=== PATIENT | male | born 1960 | race Caucasian/White ===

== ENCOUNTER 2021-12-13 21:11 | Inpatient (IN) | payer MEDICARE, OTHER ==
[2021-12-13 22:03] LABS: #Basophils 0.1 10x3/uL (0.0-0.2); #Eosinphils 1.5 10x3/uL (0.0-0.5); #Monocytes 0.9 10x3/uL (0.0-1.1); #Neutrophils 6.7 10x3/uL (1.5-8.4); %Basophils 0.8 % (0.0-2.0); %Eosinophils 12.9 % (0.0-6.0); %Lymphocytes 19.9 % (18.0-47.0); %Monocytes 7.8 % (0.0-10.0); %Neutrophils 58.3 % (40.0-75.0); Hemoglobin 15.7 g/dL (13.5-17.5); Mean Corpuscular Hemoglobin 29.7 pg (27.0-33.0); Mean Corpuscular Volume 87.5 fl (81.2-95.1); Mean Platelet Volume 9.2 fl (7.4-10.4); Platelet Count 304 10x3/uL (150-450); RBC Distribution Width 12.3 % (11.5-14.5); Red Blood Cell (RBC) Count 5.28 10x6/uL (4.32-5.72); White Blood Cell (WBC) Count 11.4 10x3/uL (3.5-10.5)
[2021-12-13 22:14] LABS: ALT (SGPT) 17 U/L (8-55); AST (SGOT) 17 U/L (5-34); Albumin 4.2 g/dL (3.5-5.0); Alkaline Phosphatase 88 U/L (40-110); Anion Gap 19 mmol/L (10-20); BUN (Urea Nitrogen) 21 mg/dL (8.4-25.7); Calc. Creatinine Clearance 0 mL/min (70-130); Calcium 9.4 mg/dL (7.8-10.44); Carbon Dioxide 23 mmol/L (22-29); Chloride 97 mmol/L (98-107); Estimated GFR 57; Globulin 3.1 g/dL (2.4-3.5); Glucose 396 mg/dL (70-105); Potassium 4.8 mmol/L (3.5-5.1); Protein, Total 7.3 g/dL (6.0-8.3); Sodium 134 mmol/L (136-145)
[2021-12-13 22:31] LABS: SARS-CoV-2 NAA Rapid Test Not Detected (NotDetected)
[2021-12-13] MEDS ORDERED: predniSONE 20 MG TAB ONE (23:09)
[2021-12-13] MEDS ORDERED: Magnesium 2 GM/50 ML BAG (IN WATER) ONE (23:09)
[2021-12-13] MEDS ORDERED: Azithromycin 500 MG VIAL ONE (23:09)
[2021-12-13] MEDS ORDERED: cefTRIAXone\\ROCEPHIN 1 GM VIAL ONE (23:29)
[2021-12-14 00:27] LABS: Lactic Acid 1.3 mmol/L (0.5-2.2)
[2021-12-14] MEDS ORDERED: Acetaminophen 325 MG TAB PO PRN (01:22)
[2021-12-14] MEDS ORDERED: Dextrose 50% Abboject 50 ML SYRINGE SLOW IVP PRN (01:27)
[2021-12-14] MEDS ORDERED: Dextrose 5% in Water 1,000 ML IV PRN (01:27)
[2021-12-14 02:45] VITALS: BMI 26.7
[2021-12-14] MEDS: Guaifenesin DM 100-10/5 ML UDCUP PO PRN ×2 (02:54→10:17)
[2021-12-14] MEDS ORDERED: methylPREDNISolone Sod Succ 40 MG VIAL IVP SCH (03:00)
[2021-12-14] MEDS: Sodium Chloride 0.9% 1,000 ML IV SCH ×2 (03:03→07:00)
[2021-12-14 04:00] LABS: #Basophils 0.1 10x3/uL (0.0-0.2); #Eosinphils 0.4 10x3/uL (0.0-0.5); #Monocytes 0.2 10x3/uL (0.0-1.1); #Neutrophils 7.3 10x3/uL (1.5-8.4); %Basophils 0.7 % (0.0-2.0); %Lymphocytes 8.8 % (18.0-47.0); %Monocytes 2.2 % (0.0-10.0); Hemoglobin 14.8 g/dL (13.5-17.5); Mean Corpuscular HGB CONC 33.2 g/dL (32.0-36.0); Mean Corpuscular Hemoglobin 29.4 pg (27.0-33.0); Mean Corpuscular Volume 88.5 fl (81.2-95.1); Mean Platelet Volume 9.1 fl (7.4-10.4); Platelet Count 275 10x3/uL (150-450); RBC Distribution Width 12.4 % (11.5-14.5); Red Blood Cell (RBC) Count 5.04 10x6/uL (4.32-5.72); White Blood Cell (WBC) Count 8.8 10x3/uL (3.5-10.5)
[2021-12-14 04:16] LABS: Anion Gap 18 mmol/L (10-20); BUN (Urea Nitrogen) 17 mg/dL (8.4-25.7); Calc. Creatinine Clearance 90 mL/min (70-130); Calcium 8.6 mg/dL (7.8-10.44); Carbon Dioxide 17 mmol/L (22-29); Chloride 102 mmol/L (98-107); Estimated GFR 76; Glucose 398 mg/dL (70-105); Magnesium 2.1 mg/dL (1.6-2.6); Potassium 5.1 mmol/L (3.5-5.1); Sodium 132 mmol/L (136-145)
[2021-12-14] MEDS: HumaLOG 300 UNITS/3 ML VIAL SC PRN ×3 (04:40→11:38)
[2021-12-14 05:19] VITALS: BP 145/82; TEMP 98.3
[2021-12-14] MEDS ORDERED: Insulin Regular 300 UNITS/3 ML VIAL IVP SCH (05:45)
[2021-12-14] MEDS ORDERED: Levothyroxine Sodium 50 MCG TAB PO SCH (06:00)
[2021-12-14] MEDS ORDERED: Budesonide 0.5 MG/2 ML NEB NEB SCH (06:30)
[2021-12-14] MEDS ORDERED: Arformoterol 15 MCG/2 ML NEB NEB SCH (06:30)
[2021-12-14] MEDS ORDERED: metFORMIN 500 MG TAB PO SCH (08:00)
[2021-12-14] MEDS ORDERED: Enoxaparin Sodium 40 MG/0.4 ML SYRINGE SC SCH (09:00)
[2021-12-14] MEDS ORDERED: Lisinopril 10 MG TAB PO SCH (09:00)
[2021-12-14] MEDS ORDERED: Empagliflozin 25 MG TAB PO SCH (09:00)
[2021-12-14] MEDS ORDERED: Clopidogrel Bisulfate 75 MG TAB PO SCH (09:00)
[2021-12-14] MEDS ORDERED: Lantus 1000 UNITS/10 ML VIAL SC SCH (09:00)
[2021-12-14] MEDS ORDERED: Aspirin 81 mg Enteric Coated Tablet PO SCH (09:00)
[2021-12-14] MEDS ORDERED: Nicotine 21 MG PATCH TD SCH (09:00)
[2021-12-14] MEDS ORDERED: Atorvastatin Calcium 10 MG TAB PO SCH (21:00)
[2021-12-14] MEDS ORDERED: cefTRIAXone\\ROCEPHIN 1 GM in Sodium Chloride 0.9% 100 ML IVPB SCH (23:00)
[2021-12-14] MEDS ORDERED: Azithromycin 500 MG in Sodium Chloride 0.9% 250 ML 250 ML IVPB SCH (23:59)
== END 2021-12-14 14:03 | disposition home health service (06) | DRG 190 ==
LOC: CSHERS 21:11 → CSHTELE 12-14 02:00 → CSHICU 12-14 07:31
PROVIDERS: ADMIT Family Medicine; ATTEND Family Medicine
DX: J44.1 Chronic obstructive pulmonary disease with (acute) exacerbation (principal); E11.10 Type 2 diabetes mellitus with ketoacidosis without coma; Z20.822 Contact with and (suspected) exposure to COVID-19; F17.210 Nicotine dependence, cigarettes, uncomplicated; I10 Essential (primary) hypertension; E11.42 Type 2 diabetes mellitus with diabetic polyneuropathy; E11.51 Type 2 diabetes mellitus with diabetic peripheral angiopathy without gangrene; E11.621 Type 2 diabetes mellitus with foot ulcer; L97.509 Non-pressure chronic ulcer of other part of unspecified foot with unspecified severity; Z88.6 Allergy status to analgesic agent; Z88.0 Allergy status to penicillin; Z88.1 Allergy status to other antibiotic agents; Z88.8 Allergy status to other drugs, medicaments and biological substances; Z79.899 Other long term (current) drug therapy; Z79.4 Long term (current) use of insulin; Z79.82 Long term (current) use of aspirin; Z79.890 Hormone replacement therapy; Z79.84 Long term (current) use of oral hypoglycemic drugs; Z79.02 Long term (current) use of antithrombotics/antiplatelets; Z90.49 Acquired absence of other specified parts of digestive tract; Z98.1 Arthrodesis status; Z82.49 Family history of ischemic heart disease and other diseases of the circulatory system; Z83.3 Family history of diabetes mellitus; Z71.6 Tobacco abuse counseling
CPT/HCPCS: 36415; 36416; 71045; 80048; 80053; 82010; 83605; 83735; 83880; 84443; 84484; 85025; 87040; 93005; 93010; 94640; 94760; 96365; 96367; 96368; J0456; J0696; J1650; J1815; J2920; J3475; J7050; J7512; J7620; J7626

== ENCOUNTER 2022-01-21 13:02 | Inpatient (IN) | payer MEDICARE ==
[2022-01-21 13:41] LABS: #Basophils 0.1 10x3/uL (0.0-0.2); #Monocytes 0.5 10x3/uL (0.0-1.1); %Basophils 1.1 % (0.0-2.0); %Eosinophils 12.2 % (0.0-6.0); %Lymphocytes 20.1 % (18.0-47.0); %Monocytes 6.1 % (0.0-10.0); %Neutrophils 60.1 % (40.0-75.0); Hemoglobin 14.7 g/dL (13.5-17.5); Mean Corpuscular HGB CONC 35.1 g/dL (32.0-36.0); Mean Corpuscular Hemoglobin 30.3 pg (27.0-33.0); Mean Corpuscular Volume 86.4 fl (81.2-95.1); Platelet Count 267 10x3/uL (150-450); RBC Distribution Width 12.3 % (11.5-14.5); Red Blood Cell (RBC) Count 4.85 10x6/uL (4.32-5.72); White Blood Cell (WBC) Count 8.3 10x3/uL (3.5-10.5)
[2022-01-21 13:54] LABS: ALT (SGPT) 11 U/L (8-55); AST (SGOT) 11 U/L (5-34); Alkaline Phosphatase 79 U/L (40-110); Anion Gap 15 mmol/L (10-20); BUN (Urea Nitrogen) 13 mg/dL (8.4-25.7); Bilirubin, Total 1.8 mg/dL (0.2-1.2); Calc. Creatinine Clearance 0 mL/min (70-130); Calcium 8.8 mg/dL (7.8-10.44); Carbon Dioxide 23 mmol/L (22-29); Chloride 99 mmol/L (98-107); Estimated GFR 71; Globulin 2.8 g/dL (2.4-3.5); Glucose 315 mg/dL (70-105); Potassium 4.2 mmol/L (3.5-5.1); Protein, Total 6.8 g/dL (6.0-8.3); Sodium 133 mmol/L (136-145)
[2022-01-21] MEDS ORDERED: Cefepime 2 GM VIAL ONE (14:11)
[2022-01-21] MEDS ORDERED: Vancomycin HCl 500 MG VIAL ONE (14:29)
[2022-01-21 15:38] LABS: SARS-CoV-2 NAA Rapid Test Not Detected (NotDetected)
[2022-01-21] MEDS ORDERED: HumaLOG 300 UNITS/3 ML VIAL SC PRN (16:53)
[2022-01-21] MEDS ORDERED: Dextrose 50% Abboject 50 ML SYRINGE SLOW IVP PRN (16:53)
[2022-01-21] MEDS ORDERED: Dextrose 5% in Water 1,000 ML IV PRN (16:53)
[2022-01-21] MEDS ORDERED: Albuterol Sulfate 2.5 mg/3 ml Neb NEB PRN (16:57)
[2022-01-21] MEDS ORDERED: Senokot S 8.6-50 MG TAB PO PRN (17:00)
[2022-01-21] MEDS ORDERED: Acetaminophen 325 MG TAB PO PRN (17:00)
[2022-01-21] MEDS ORDERED: MIST INHAL IH SCH (17:00)
[2022-01-21] MEDS ORDERED: TIOTROPIUM BROMIDE 4 GM IH SCH (17:00)
[2022-01-21 19:38] VITALS: BMI 26.5
[2022-01-21] MEDS ORDERED: Atorvastatin Calcium 10 MG TAB PO SCH (21:00)
[2022-01-21] MEDS ORDERED: Mometasone/Formoterol 60 PUFF AER INH SCH (21:00)
[2022-01-21] MEDS: Sodium Chloride 0.9% 1,000 ML IV SCH (21:16)
[2022-01-21] MEDS: Benzonatate 100 MG CAP PO PRN (23:24)
[2022-01-21 23:49] LABS: Bilirubin Neg (Negative); Blood, Urine Negative (Negative); Clarity Clear (Clear); Glucose, Urine (Dipstick) >=1000 mg/dL (Negative); Ketone, Urine Negative (Negative); Leukocyte Negative (Negative); Nitrite Negative (Negative); Protein, Urine (Dipstick) Negative (Neg-Trace); Urobilinogen Normal mg/dL (Less than 2)
[2022-01-21 23:56] LABS: Bacteria/HPF None Seen HPF (None Seen); RBC/HPF 0-3 HPF (0-3); Squamous Epithelial 0-3 HPF (0-3); WBC/HPF 0-3 HPF (0-3)
[2022-01-22] MEDS: Vancomycin HCl 1 GM in Sodium Chloride 0.9% 250 ML 250 ML IVPB SCH ×2 (02:16→14:12)
[2022-01-22 04:42] LABS: #Basophils 0.1 10x3/uL (0.0-0.2); #Eosinphils 0.8 10x3/uL (0.0-0.5); #Monocytes 0.6 10x3/uL (0.0-1.1); #Neutrophils 4.9 10x3/uL (1.5-8.4); %Basophils 0.9 % (0.0-2.0); %Eosinophils 10.8 % (0.0-6.0); %Lymphocytes 17.3 % (18.0-47.0); %Monocytes 7.2 % (0.0-10.0); %Neutrophils 63.3 % (40.0-75.0); Hemoglobin 13.2 g/dL (13.5-17.5); Mean Corpuscular HGB CONC 34.9 g/dL (32.0-36.0); Mean Corpuscular Hemoglobin 29.7 pg (27.0-33.0); Mean Corpuscular Volume 85.1 fl (81.2-95.1); Mean Platelet Volume 8.9 fl (7.4-10.4); Platelet Count 214 10x3/uL (150-450); RBC Distribution Width 12.5 % (11.5-14.5); Red Blood Cell (RBC) Count 4.44 10x6/uL (4.32-5.72); White Blood Cell (WBC) Count 7.8 10x3/uL (3.5-10.5)
[2022-01-22 05:04] LABS: Anion Gap 14 mmol/L (10-20); BUN (Urea Nitrogen) 11 mg/dL (8.4-25.7); Calc. Creatinine Clearance 113 mL/min (70-130); Calcium 8.4 mg/dL (7.8-10.44); Carbon Dioxide 19 mmol/L (22-29); Chloride 108 mmol/L (98-107); Estimated GFR 99; Glucose 206 mg/dL (70-105); Potassium 3.6 mmol/L (3.5-5.1); Sodium 137 mmol/L (136-145)
[2022-01-22] MEDS: Benzonatate 100 MG CAP PO PRN ×3 (06:02→23:21)
[2022-01-22] MEDS: Levothyroxine Sodium 50 MCG TAB PO SCH (06:02)
[2022-01-22] MEDS: HumaLOG 300 UNITS/3 ML VIAL SC PRN (06:03)
[2022-01-22] MEDS: Sodium Chloride 0.9% 1,000 ML IV SCH (07:22)
[2022-01-22] MEDS: Mometasone/Formoterol 60 PUFF AER INH SCH ×2 (08:34→19:35)
[2022-01-22] MEDS ORDERED: Iopamidol 300 61% 100 ML VIAL FS ONE (08:55)
[2022-01-22] MEDS ORDERED: Communication Order-Pharmacy FS SCH (09:30)
[2022-01-22] MEDS ORDERED: Heparin 10,000 UNITS/ 10 ML VIAL ONE (09:34)
[2022-01-22] MEDS ORDERED: Nitroglycerin 50 MG/250 ML BOT 0 ML ONE (09:34)
[2022-01-22] MEDS ORDERED: Verapamil 5 MG/2 ML VIAL ONE (09:36)
[2022-01-22] MEDS ORDERED: Bivalirudin 250 MG VIAL ONE (09:37)
[2022-01-22] MEDS ORDERED: Lidocaine 1% 20 ML MDV ONE (09:37)
[2022-01-22] MEDS ORDERED: Adenosine 6 MG/2 ML VIAL ONE (09:37)
[2022-01-22] MEDS ORDERED: Fentanyl 100 MCG/2 ML VIAL ONE (09:38)
[2022-01-22] MEDS ORDERED: Midazolam HCl 2 mg/2 ml Vial ONE (09:39)
[2022-01-22] MEDS ORDERED: TICAGRELOR 90 MG TABLET ONE (10:57)
[2022-01-22] MEDS ORDERED: Sodium Chloride 0.9% 1,000 ML IV SCH (12:15)
[2022-01-22] MEDS ORDERED: Labetalol HCl 100 MG/20 ML VIAL ONE (12:25)
[2022-01-22] MEDS: predniSONE 20 MG TAB PO SCH (14:16)
[2022-01-22] MEDS: Venlafaxine 75 MG TAB PO SCH (14:17)
[2022-01-22] MEDS: Cilostazol 100 MG TAB PO SCH ×2 (14:17→17:03)
[2022-01-22] MEDS: Aspirin 81 mg Enteric Coated Tablet PO SCH (14:17)
[2022-01-22] MEDS: Lisinopril 10 MG TAB PO SCH (14:18)
[2022-01-22] MEDS: Lantus 1000 UNITS/10 ML VIAL SC SCH (14:18)
[2022-01-22] MEDS: Clopidogrel Bisulfate 75 MG TAB PO SCH (14:18)
[2022-01-22] MEDS: Empagliflozin 25 MG TAB PO SCH (14:18)
[2022-01-22] MEDS: Cefepime 2 GM in Sodium Chloride 0.9% 100 ML IVPB SCH ×2 (14:19→22:54)
[2022-01-22] MEDS: Atorvastatin Calcium 40 MG TAB PO SCH (20:20)
[2022-01-22] MEDS: Ondansetron ODT 4 MG TAB PO PRN (23:21)
[2022-01-23 01:34] LABS: Vancomycin, Trough 11.3 ug/mL
[2022-01-23] MEDS: Vancomycin HCl 1 GM in Sodium Chloride 0.9% 250 ML 250 ML IVPB SCH ×2 (02:11→14:16)
[2022-01-23] MEDS: Ondansetron ODT 4 MG TAB PO PRN ×2 (04:21→10:55)
[2022-01-23 04:28] LABS: #Monocytes 0.2 10x3/uL (0.0-1.1); #Neutrophils 7.1 10x3/uL (1.5-8.4); %Basophils 0.4 % (0.0-2.0); %Lymphocytes 8.2 % (18.0-47.0); %Neutrophils 87.8 % (40.0-75.0); Mean Corpuscular HGB CONC 34.6 g/dL (32.0-36.0); Mean Corpuscular Hemoglobin 29.8 pg (27.0-33.0); Mean Corpuscular Volume 86.2 fl (81.2-95.1); Mean Platelet Volume 8.8 fl (7.4-10.4); Platelet Count 270 10x3/uL (150-450); RBC Distribution Width 12.5 % (11.5-14.5); White Blood Cell (WBC) Count 8.1 10x3/uL (3.5-10.5)
[2022-01-23 05:01] LABS: ALT (SGPT) 13 U/L (8-55); AST (SGOT) 13 U/L (5-34); Albumin 3.6 g/dL (3.5-5.0); Alkaline Phosphatase 71 U/L (40-110); Anion Gap 18 mmol/L (10-20); BUN (Urea Nitrogen) 17 mg/dL (8.4-25.7); Bilirubin, Total 1.4 mg/dL (0.2-1.2); Calc. Creatinine Clearance 109 mL/min (70-130); Calcium 8.6 mg/dL (7.8-10.44); Carbon Dioxide 14 mmol/L (22-29); Chloride 107 mmol/L (98-107); Estimated GFR 98; Globulin 3.1 g/dL (2.4-3.5); Glucose 328 mg/dL (70-105); Potassium 4.3 mmol/L (3.5-5.1); Protein, Total 6.7 g/dL (6.0-8.3); Sodium 135 mmol/L (136-145)
[2022-01-23 05:17] LABS: Cardiac Risk 3.2 (Less than 4.5); Cholesterol 164 mg/dl (< 200 Desired); HDL Cholesterol 51 mg/dL (>60 Neg Risk); LDL Cholesterol, Calculated 105 mg/dL; Triglycerides 39 mg/dL (Less than 150)
[2022-01-23] MEDS: Levothyroxine Sodium 50 MCG TAB PO SCH (06:32)
[2022-01-23] MEDS: Cilostazol 100 MG TAB PO SCH ×2 (06:32→16:22)
[2022-01-23] MEDS: Mometasone/Formoterol 60 PUFF AER INH SCH ×2 (06:50→18:50)
[2022-01-23] MEDS ORDERED: Carvedilol 6.25 MG TAB PO SCH (09:00)
[2022-01-23] MEDS ORDERED: Magnevist 469MG/ML 20 ML VIAL ONE (09:02)
[2022-01-23] MEDS: Cefepime 2 GM in Sodium Chloride 0.9% 100 ML IVPB SCH ×2 (09:11→21:34)
[2022-01-23] MEDS: Lantus 1000 UNITS/10 ML VIAL SC SCH ×2 (09:12→21:34)
[2022-01-23] MEDS: Empagliflozin 25 MG TAB PO SCH (09:13)
[2022-01-23] MEDS: predniSONE 20 MG TAB PO SCH (09:13)
[2022-01-23] MEDS: Clopidogrel Bisulfate 75 MG TAB PO SCH (09:13)
[2022-01-23] MEDS: Lisinopril 10 MG TAB PO SCH (09:14)
[2022-01-23] MEDS: Venlafaxine 75 MG TAB PO SCH (09:14)
[2022-01-23] MEDS: Aspirin 81 mg Enteric Coated Tablet PO SCH (09:16)
[2022-01-23 12:48] LABS: Hemoglobin A1c 11.2 % (4.0-6.0)
[2022-01-23] MEDS: HumaLOG 300 UNITS/3 ML VIAL SC PRN (16:21)
[2022-01-23] MEDS: Carvedilol 6.25 MG TAB PO SCH (16:22)
[2022-01-23] MEDS: Atorvastatin Calcium 40 MG TAB PO SCH (21:33)
[2022-01-24] MEDS: Vancomycin HCl 1 GM in Sodium Chloride 0.9% 250 ML 250 ML IVPB SCH ×2 (03:08→14:30)
[2022-01-24 05:01] LABS: Anion Gap 17 mmol/L (10-20); BUN (Urea Nitrogen) 24 mg/dL (8.4-25.7); CRP (Inflammatory) 1.38 mg/dL (= or < 0.5); Calc. Creatinine Clearance 105 mL/min (70-130); Calcium 8.9 mg/dL (7.8-10.44); Carbon Dioxide 18 mmol/L (22-29); Chloride 106 mmol/L (98-107); Estimated GFR 93; Glucose 143 mg/dL (70-105); Potassium 4.2 mmol/L (3.5-5.1); Sodium 137 mmol/L (136-145)
[2022-01-24] MEDS: Mometasone/Formoterol 60 PUFF AER INH SCH ×2 (05:35→19:11)
[2022-01-24] MEDS ORDERED: Ondansetron PF 4 MG/2 ML Vial IVP PRN (07:03)
[2022-01-24] MEDS: Levothyroxine Sodium 50 MCG TAB PO SCH (08:15)
[2022-01-24] MEDS: Cefepime 2 GM in Sodium Chloride 0.9% 100 ML IVPB SCH ×2 (09:51→21:10)
[2022-01-24] MEDS: Cilostazol 100 MG TAB PO SCH ×2 (09:51→17:30)
[2022-01-24] MEDS: Empagliflozin 25 MG TAB PO SCH (09:52)
[2022-01-24] MEDS: Lisinopril 10 MG TAB PO SCH (09:52)
[2022-01-24] MEDS: predniSONE 20 MG TAB PO SCH (09:53)
[2022-01-24] MEDS: Venlafaxine 75 MG TAB PO SCH (09:53)
[2022-01-24] MEDS: Aspirin 81 mg Enteric Coated Tablet PO SCH (09:53)
[2022-01-24] MEDS: Clopidogrel Bisulfate 75 MG TAB PO SCH (09:53)
[2022-01-24] MEDS: Carvedilol 6.25 MG TAB PO SCH ×2 (09:53→17:30)
[2022-01-24] MEDS: Lantus 1000 UNITS/10 ML VIAL SC SCH ×2 (09:55→20:35)
[2022-01-24 13:20] LABS: Vancomycin, Trough 17.7 ug/mL
[2022-01-24] MEDS: Atorvastatin Calcium 40 MG TAB PO SCH (20:35)
[2022-01-25] MEDS: Vancomycin HCl 1 GM in Sodium Chloride 0.9% 250 ML 250 ML IVPB SCH ×2 (01:30→13:30)
[2022-01-25] MEDS: Levothyroxine Sodium 50 MCG TAB PO SCH (06:22)
[2022-01-25] MEDS: Mometasone/Formoterol 60 PUFF AER INH SCH ×2 (07:50→19:12)
[2022-01-25] MEDS ORDERED: Metoprolol Tartrate 5 MG/5 ML VIAL IVP SCH (08:30)
[2022-01-25] MEDS: Cilostazol 100 MG TAB PO SCH ×2 (08:34→17:24)
[2022-01-25] MEDS: predniSONE 20 MG TAB PO SCH (08:34)
[2022-01-25] MEDS: Venlafaxine 75 MG TAB PO SCH (08:35)
[2022-01-25] MEDS: Apixaban 5 MG TAB PO SCH ×2 (08:36→20:32)
[2022-01-25] MEDS: Aspirin 81 mg Enteric Coated Tablet PO SCH (08:36)
[2022-01-25] MEDS: Empagliflozin 25 MG TAB PO SCH (08:36)
[2022-01-25] MEDS: Clopidogrel Bisulfate 75 MG TAB PO SCH (08:36)
[2022-01-25] MEDS: Lantus 1000 UNITS/10 ML VIAL SC SCH ×2 (08:39→20:33)
[2022-01-25] MEDS: Carvedilol 6.25 MG TAB PO SCH ×2 (08:41→17:23)
[2022-01-25] MEDS ORDERED: Digoxin 0.5 MG/2 ML AMP SLOW IVP SCH ×5 (09:15→18:45)
[2022-01-25] MEDS ORDERED: Sodium Chloride 0.9% 500 ML IV SCH (09:15)
[2022-01-25 09:39] LABS: #Basophils 0.1 10x3/uL (0.0-0.2); #Eosinphils 0.4 10x3/uL (0.0-0.5); #Monocytes 0.9 10x3/uL (0.0-1.1); #Neutrophils 7.3 10x3/uL (1.5-8.4); %Basophils 0.8 % (0.0-2.0); %Eosinophils 3.5 % (0.0-6.0); %Lymphocytes 20.1 % (18.0-47.0); %Monocytes 8.6 % (0.0-10.0); %Neutrophils 66.5 % (40.0-75.0); Hemoglobin 15.3 g/dL (13.5-17.5); Mean Corpuscular HGB CONC 33.9 g/dL (32.0-36.0); Mean Corpuscular Hemoglobin 29.6 pg (27.0-33.0); Mean Corpuscular Volume 87.2 fl (81.2-95.1); Platelet Count 401 10x3/uL (150-450); RBC Distribution Width 12.7 % (11.5-14.5); Red Blood Cell (RBC) Count 5.17 10x6/uL (4.32-5.72)
[2022-01-25 09:40] LABS: ALT (SGPT) 12 U/L (8-55); AST (SGOT) 13 U/L (5-34); Albumin 3.4 g/dL (3.5-5.0); Alkaline Phosphatase 68 U/L (40-110); Anion Gap 18 mmol/L (10-20); BUN (Urea Nitrogen) 25 mg/dL (8.4-25.7); Bilirubin, Total 1.1 mg/dL (0.2-1.2); Calc. Creatinine Clearance 90 mL/min (70-130); Calcium 8.8 mg/dL (7.8-10.44); Carbon Dioxide 20 mmol/L (22-29); Chloride 105 mmol/L (98-107); Estimated GFR 78; Globulin 2.9 g/dL (2.4-3.5); Glucose 96 mg/dL (70-105); Potassium 3.5 mmol/L (3.5-5.1); Protein, Total 6.3 g/dL (6.0-8.3); Sodium 139 mmol/L (136-145)
[2022-01-25] MEDS ORDERED: Digoxin 0.5 MG/2 ML AMP ONE ×2 (09:46→09:55)
[2022-01-25] MEDS: HumaLOG 300 UNITS/3 ML VIAL SC PRN ×2 (11:28→17:22)
[2022-01-25] MEDS: Cefepime 2 GM in Sodium Chloride 0.9% 100 ML IVPB SCH (11:29)
[2022-01-25] MEDS: Lactated Ringer's 1,000 ML IV SCH (13:31)
[2022-01-25 13:42] LABS: Vancomycin, Trough 18.7 ug/mL
[2022-01-25] MEDS ORDERED: Ipratropium Oral Inhaler INH PRN (18:30)
[2022-01-25] MEDS ORDERED: Dronedarone HCl 400 MG TAB PO SCH (20:00)
[2022-01-25] MEDS: Atorvastatin Calcium 40 MG TAB PO SCH (20:32)
[2022-01-25] MEDS: Linezolid 600 MG TAB PO SCH (20:34)
[2022-01-26] MEDS ORDERED: Bisacodyl 10 MG SUPP PR SCH (01:45)
[2022-01-26 04:43] LABS: Anion Gap 13 mmol/L (10-20); BUN (Urea Nitrogen) 26 mg/dL (8.4-25.7); Calc. Creatinine Clearance 116 mL/min (70-130); Calcium 8.6 mg/dL (7.8-10.44); Carbon Dioxide 21 mmol/L (22-29); Chloride 107 mmol/L (98-107); Estimated GFR 99; Glucose 138 mg/dL (70-105); Magnesium 1.9 mg/dL (1.6-2.6); Potassium 3.8 mmol/L (3.5-5.1); Sodium 137 mmol/L (136-145)
[2022-01-26] MEDS: Lactated Ringer's 1,000 ML IV SCH (05:00)
[2022-01-26] MEDS: Levothyroxine Sodium 50 MCG TAB PO SCH (05:03)
[2022-01-26] MEDS: Mometasone/Formoterol 60 PUFF AER INH SCH (07:15)
[2022-01-26] MEDS ORDERED: Dronedarone HCl 400 MG TAB PO SCH (08:00)
[2022-01-26] MEDS: Aspirin 81 mg Enteric Coated Tablet PO SCH (08:46)
[2022-01-26] MEDS: Carvedilol 6.25 MG TAB PO SCH (08:46)
[2022-01-26] MEDS: Apixaban 5 MG TAB PO SCH (08:47)
[2022-01-26] MEDS: predniSONE 20 MG TAB PO SCH (08:47)
[2022-01-26] MEDS: Empagliflozin 25 MG TAB PO SCH (08:48)
[2022-01-26] MEDS: Linezolid 600 MG TAB PO SCH (08:48)
[2022-01-26] MEDS: Lantus 1000 UNITS/10 ML VIAL SC SCH (08:49)
[2022-01-26] MEDS: Cilostazol 100 MG TAB PO SCH (08:55)
[2022-01-26] MEDS ORDERED: Digoxin 0.125 MG TAB PO SCH (09:00)
[2022-01-26] MEDS ORDERED: Polyethylene Glycol 3350 17 GM Packet PO SCH (09:00)
[2022-01-26 12:07] VITALS: BP 125/58; TEMP 98.2
[2022-01-26] MEDS ORDERED: VANCOMYCIN 1.75 GM/350 ML BAG 1.75 GM in Premix Bag 1 BAG IVPB SCH (14:00)
== END 2022-01-26 12:00 | disposition home or self-care (01) | DRG 253 ==
LOC: CSHERS 13:02 → CSHTELE 19:32
PROVIDERS: ADMIT Student in an Organized Health Care Education/Training Program; ATTEND Family Medicine
PROC: 047K3ZZ Dilation of Right Femoral Artery, Percutaneous Approach (ICD-10-PCS; principal; 2022-01-22)
PROC: 047P3ZZ Dilation of Right Anterior Tibial Artery, Percutaneous Approach (ICD-10-PCS; 2022-01-22)
PROC: B40D1ZZ Plain Radiography of Aorta and Bilateral Lower Extremity Arteries using Low Osmolar Contrast (ICD-10-PCS; 2022-01-22)
DX: E11.51 Type 2 diabetes mellitus with diabetic peripheral angiopathy without gangrene (principal); J44.1 Chronic obstructive pulmonary disease with (acute) exacerbation; M86.8X7 Other osteomyelitis, ankle and foot; E11.621 Type 2 diabetes mellitus with foot ulcer; E11.42 Type 2 diabetes mellitus with diabetic polyneuropathy; L97.529 Non-pressure chronic ulcer of other part of left foot with unspecified severity; L97.519 Non-pressure chronic ulcer of other part of right foot with unspecified severity; Z20.822 Contact with and (suspected) exposure to COVID-19; I10 Essential (primary) hypertension; E78.5 Hyperlipidemia, unspecified; E03.9 Hypothyroidism, unspecified; F32.A Depression, unspecified; E78.00 Pure hypercholesterolemia, unspecified; I95.9 Hypotension, unspecified; I48.91 Unspecified atrial fibrillation; I25.10 Atherosclerotic heart disease of native coronary artery without angina pectoris; E11.69 Type 2 diabetes mellitus with other specified complication; E11.65 Type 2 diabetes mellitus with hyperglycemia; I70.201 Unspecified atherosclerosis of native arteries of extremities, right leg; F17.210 Nicotine dependence, cigarettes, uncomplicated; Z88.6 Allergy status to analgesic agent; Z88.0 Allergy status to penicillin; Z88.8 Allergy status to other drugs, medicaments and biological substances; Z88.1 Allergy status to other antibiotic agents; Z79.82 Long term (current) use of aspirin; Z79.899 Other long term (current) drug therapy; Z79.02 Long term (current) use of antithrombotics/antiplatelets; Z79.4 Long term (current) use of insulin; Z79.890 Hormone replacement therapy; Z79.84 Long term (current) use of oral hypoglycemic drugs; Z87.442 Personal history of urinary calculi; Z95.5 Presence of coronary angioplasty implant and graft
CPT/HCPCS: 36140; 36246; 36247; 36415; 36416; 37224; 37228; 75716; 75736; 80048; 80053; 80061; 80202; 81001; 82565; 83036; 83605; 83735; 84484; 84520; 85025; 85347; 86140; 87040; 87070; 87077; 87186; 87205; 93005; 93010; 93923; 94640; 94760; 97139; 99152; 99153; A9579; C1725; C1769; C1887; C1894; J0153; J0583; J0692; J1160; J1644; J1815; J2250; J2405; J3010; J3370; J3490; J7030; J7050; J7120; J7512; J7620; Q0162; Q9967; U0002

== ENCOUNTER 2022-04-30 08:43 | Outpatient (CLI) | payer MEDICARE, OTHER | END 2022-04-30 08:44 | disposition home or self-care (01) | LOC: CSHWCC 08:43 | PROVIDERS: ATTEND Nurse Practitioner Family | DX: E11.621 Type 2 diabetes mellitus with foot ulcer (principal); L97.512 Non-pressure chronic ulcer of other part of right foot with fat layer exposed; L97.422 Non-pressure chronic ulcer of left heel and midfoot with fat layer exposed; Z89.411 Acquired absence of right great toe | CPT/HCPCS: 17250; 87077; 87186; 97139; G0463; 99204 ==

== ENCOUNTER 2022-04-30 11:35 | Outpatient (CLI) | payer MEDICARE, OTHER | END 2022-04-30 11:36 | disposition home or self-care (01) | LOC: CSHRAD 11:35 | PROVIDERS: ATTEND Nurse Practitioner Family | DX: E11.621 Type 2 diabetes mellitus with foot ulcer (principal); L97.512 Non-pressure chronic ulcer of other part of right foot with fat layer exposed; Z89.411 Acquired absence of right great toe; M89.8X7 Other specified disorders of bone, ankle and foot | CPT/HCPCS: 36415; 83036; 85025; 86140; 87070; 87205 ==

== ENCOUNTER 2022-05-14 10:23 | Outpatient (CLI) | payer OTHER | END 2022-05-14 10:24 | disposition home or self-care (01) | LOC: CSHWCC 10:23 | PROVIDERS: ATTEND Nurse Practitioner Family | DX: E11.621 Type 2 diabetes mellitus with foot ulcer (principal); L97.512 Non-pressure chronic ulcer of other part of right foot with fat layer exposed; L97.422 Non-pressure chronic ulcer of left heel and midfoot with fat layer exposed | CPT/HCPCS: 11042; 36416; G0277 ==

== ENCOUNTER 2022-05-15 08:08 | Outpatient (CLI) | payer OTHER | END 2022-05-15 08:09 | disposition home or self-care (01) | LOC: CSHWCC 08:08 | PROVIDERS: ATTEND Nurse Practitioner Family | DX: E11.621 Type 2 diabetes mellitus with foot ulcer (principal); L97.512 Non-pressure chronic ulcer of other part of right foot with fat layer exposed | CPT/HCPCS: 36416; G0277 ==

== ENCOUNTER 2022-05-16 08:04 | Outpatient (CLI) | payer OTHER | END 2022-05-16 08:05 | disposition home or self-care (01) | LOC: CSHWCC 08:04 | PROVIDERS: ATTEND Nurse Practitioner Family | DX: E11.621 Type 2 diabetes mellitus with foot ulcer (principal); L97.512 Non-pressure chronic ulcer of other part of right foot with fat layer exposed | CPT/HCPCS: 36416 ==

== ENCOUNTER 2022-05-19 08:08 | Outpatient (CLI) | payer OTHER | END 2022-05-19 08:09 | disposition home or self-care (01) | LOC: CSHWCC 08:08 | PROVIDERS: ATTEND Nurse Practitioner Family | DX: E11.621 Type 2 diabetes mellitus with foot ulcer (principal); L97.512 Non-pressure chronic ulcer of other part of right foot with fat layer exposed | CPT/HCPCS: 36416; G0277 ==

== ENCOUNTER 2022-05-20 08:04 | Outpatient (CLI) | payer MEDICARE | END 2022-05-20 08:05 | disposition home or self-care (01) | LOC: CSHWCC 08:04 | PROVIDERS: ATTEND Nurse Practitioner Family | DX: E11.621 Type 2 diabetes mellitus with foot ulcer (principal); L97.512 Non-pressure chronic ulcer of other part of right foot with fat layer exposed | CPT/HCPCS: 82962; 97139; G0277; 36416 ==

== ENCOUNTER 2022-05-22 08:06 | Outpatient (CLI) | payer MEDICARE | END 2022-05-22 08:07 | disposition home or self-care (01) | LOC: CSHWCC 08:06 | PROVIDERS: ATTEND Nurse Practitioner Family | DX: E11.621 Type 2 diabetes mellitus with foot ulcer (principal); L97.512 Non-pressure chronic ulcer of other part of right foot with fat layer exposed | CPT/HCPCS: 36416 ==

== ENCOUNTER 2022-05-26 08:14 | Outpatient (CLI) | payer MEDICARE | END 2022-05-26 08:15 | disposition home or self-care (01) | LOC: CSHWCC 08:14 | PROVIDERS: ATTEND Nurse Practitioner Family | DX: E11.621 Type 2 diabetes mellitus with foot ulcer (principal); L97.512 Non-pressure chronic ulcer of other part of right foot with fat layer exposed | CPT/HCPCS: 36416; G0277 ==

== ENCOUNTER 2022-05-27 12:56 | Outpatient (CLI) | payer MEDICARE | END 2022-05-27 12:57 | disposition home or self-care (01) | LOC: CSHWCC 12:56 | PROVIDERS: ATTEND Nurse Practitioner Family | DX: E11.621 Type 2 diabetes mellitus with foot ulcer (principal); L97.512 Non-pressure chronic ulcer of other part of right foot with fat layer exposed | CPT/HCPCS: 36416 ==

== ENCOUNTER 2022-05-29 08:08 | Outpatient (CLI) | payer MEDICARE | END 2022-05-29 08:09 | disposition home or self-care (01) | LOC: CSHWCC 08:08 | PROVIDERS: ATTEND Nurse Practitioner Family | DX: E11.621 Type 2 diabetes mellitus with foot ulcer (principal); L97.512 Non-pressure chronic ulcer of other part of right foot with fat layer exposed | CPT/HCPCS: 36416 ==

== ENCOUNTER 2022-05-30 08:14 | Outpatient (CLI) | payer MEDICARE | END 2022-05-30 08:15 | disposition home or self-care (01) | LOC: CSHWCC 08:14 | PROVIDERS: ATTEND Nurse Practitioner Family | DX: E11.621 Type 2 diabetes mellitus with foot ulcer (principal); L97.512 Non-pressure chronic ulcer of other part of right foot with fat layer exposed | CPT/HCPCS: 82962; 97139; G0277; 36416 ==

== ENCOUNTER 2022-06-02 10:40 | Outpatient (CLI) | payer MEDICARE | END 2022-06-02 10:41 | disposition home or self-care (01) | LOC: CSHWCC 10:40 | PROVIDERS: ATTEND Nurse Practitioner Family | DX: E11.621 Type 2 diabetes mellitus with foot ulcer (principal); L97.512 Non-pressure chronic ulcer of other part of right foot with fat layer exposed | CPT/HCPCS: 36416; G0277 ==

== ENCOUNTER 2022-06-10 08:11 | Outpatient (CLI) | payer MEDICARE | END 2022-06-10 08:12 | disposition home or self-care (01) | LOC: CSHWCC 08:11 | PROVIDERS: ATTEND Nurse Practitioner Family | DX: E11.621 Type 2 diabetes mellitus with foot ulcer (principal); L97.512 Non-pressure chronic ulcer of other part of right foot with fat layer exposed | CPT/HCPCS: 36416 ==

== ENCOUNTER 2022-06-11 08:04 | Outpatient (CLI) | payer MEDICARE | END 2022-06-11 08:05 | disposition home or self-care (01) | LOC: CSHWCC 08:04 | PROVIDERS: ATTEND Nurse Practitioner Family | DX: E11.621 Type 2 diabetes mellitus with foot ulcer (principal); L97.512 Non-pressure chronic ulcer of other part of right foot with fat layer exposed | CPT/HCPCS: 36416 ==

== ENCOUNTER 2022-06-12 07:59 | Outpatient (CLI) | payer MEDICARE | END 2022-06-12 08:00 | disposition home or self-care (01) | LOC: CSHWCC 07:59 | PROVIDERS: ATTEND Nurse Practitioner Family | DX: E11.621 Type 2 diabetes mellitus with foot ulcer (principal); L97.512 Non-pressure chronic ulcer of other part of right foot with fat layer exposed | CPT/HCPCS: 36416 ==

== ENCOUNTER 2022-06-13 08:09 | Outpatient (CLI) | payer MEDICARE | END 2022-06-13 08:10 | disposition home or self-care (01) | LOC: CSHWCC 08:09 | PROVIDERS: ATTEND Nurse Practitioner Family | DX: E11.621 Type 2 diabetes mellitus with foot ulcer (principal); L97.512 Non-pressure chronic ulcer of other part of right foot with fat layer exposed | CPT/HCPCS: 36416; G0277 ==

== ENCOUNTER 2022-06-17 08:10 | Outpatient (CLI) | payer MEDICARE | END 2022-06-17 08:11 | disposition home or self-care (01) | LOC: CSHWCC 08:10 | PROVIDERS: ATTEND Nurse Practitioner Family | DX: E11.621 Type 2 diabetes mellitus with foot ulcer (principal); L97.512 Non-pressure chronic ulcer of other part of right foot with fat layer exposed | CPT/HCPCS: 36416; G0277 ==

== ENCOUNTER 2022-06-18 08:00 | Outpatient (CLI) | payer MEDICARE | END 2022-06-18 08:01 | LOC: CSHWCC 08:00 | PROVIDERS: ATTEND Nurse Practitioner Family | DX: E11.621 Type 2 diabetes mellitus with foot ulcer (principal); L97.512 Non-pressure chronic ulcer of other part of right foot with fat layer exposed | CPT/HCPCS: 36416; G0277 ==

== ENCOUNTER 2022-06-19 08:00 | Outpatient (CLI) | payer MEDICARE | END 2022-06-19 08:01 | disposition home or self-care (01) | LOC: CSHWCC 08:00 | PROVIDERS: ATTEND Nurse Practitioner Family | DX: E11.621 Type 2 diabetes mellitus with foot ulcer (principal); L97.512 Non-pressure chronic ulcer of other part of right foot with fat layer exposed | CPT/HCPCS: 97139; G0277 ==

== ENCOUNTER 2022-06-23 08:11 | Outpatient (CLI) | payer MEDICARE | END 2022-06-23 08:12 | disposition home or self-care (01) | LOC: CSHWCC 08:11 | PROVIDERS: ATTEND Nurse Practitioner Family | DX: E11.621 Type 2 diabetes mellitus with foot ulcer (principal); L97.512 Non-pressure chronic ulcer of other part of right foot with fat layer exposed | CPT/HCPCS: 36416 ==

== ENCOUNTER 2022-06-24 12:48 | Outpatient (CLI) | payer MEDICARE | END 2022-06-24 12:49 | disposition home or self-care (01) | LOC: CSHWCC 12:48 | PROVIDERS: ATTEND Nurse Practitioner Family | DX: E11.621 Type 2 diabetes mellitus with foot ulcer (principal); L97.412 Non-pressure chronic ulcer of right heel and midfoot with fat layer exposed | CPT/HCPCS: 36416; G0277 ==

== ENCOUNTER 2022-06-26 12:54 | Outpatient (CLI) | payer MEDICARE | END 2022-06-26 12:55 | disposition home or self-care (01) | LOC: CSHWCC 12:54 | PROVIDERS: ATTEND Nurse Practitioner Family | DX: E11.621 Type 2 diabetes mellitus with foot ulcer (principal); L97.512 Non-pressure chronic ulcer of other part of right foot with fat layer exposed | CPT/HCPCS: 36416 ==

== ENCOUNTER 2022-06-27 08:14 | Outpatient (CLI) | payer MEDICARE | END 2022-06-27 08:15 | disposition home or self-care (01) | LOC: CSHWCC 08:14 | PROVIDERS: ATTEND Nurse Practitioner Family | DX: E11.621 Type 2 diabetes mellitus with foot ulcer (principal); L97.512 Non-pressure chronic ulcer of other part of right foot with fat layer exposed | CPT/HCPCS: 36416; G0277 ==

== ENCOUNTER 2022-06-30 08:07 | Outpatient (CLI) | payer MEDICARE | END 2022-06-30 08:08 | disposition home or self-care (01) | LOC: CSHWCC 08:07 | PROVIDERS: ATTEND Nurse Practitioner Family | DX: E11.621 Type 2 diabetes mellitus with foot ulcer (principal); L97.512 Non-pressure chronic ulcer of other part of right foot with fat layer exposed; Z89.411 Acquired absence of right great toe | CPT/HCPCS: 82962; 97139; 97607; G0277; 36416 ==

== ENCOUNTER 2022-07-01 08:08 | Outpatient (CLI) | payer MEDICARE | END 2022-07-01 08:09 | disposition home or self-care (01) | LOC: CSHWCC 08:08 | PROVIDERS: ATTEND Nurse Practitioner Family | DX: E11.621 Type 2 diabetes mellitus with foot ulcer (principal); L97.512 Non-pressure chronic ulcer of other part of right foot with fat layer exposed; Z89.411 Acquired absence of right great toe | CPT/HCPCS: 36416; G0277 ==

== ENCOUNTER 2022-07-10 08:02 | Outpatient (CLI) | payer MEDICARE | END 2022-07-10 08:03 | disposition home or self-care (01) | LOC: CSHWCC 08:02 | PROVIDERS: ATTEND Nurse Practitioner Family | DX: E11.621 Type 2 diabetes mellitus with foot ulcer (principal); L97.512 Non-pressure chronic ulcer of other part of right foot with fat layer exposed | CPT/HCPCS: 36416 ==

== ENCOUNTER 2022-07-11 08:09 | Outpatient (CLI) | payer MEDICARE | END 2022-07-11 08:10 | disposition home or self-care (01) | LOC: CSHWCC 08:09 | PROVIDERS: ATTEND Nurse Practitioner Family | DX: E11.621 Type 2 diabetes mellitus with foot ulcer (principal); L97.512 Non-pressure chronic ulcer of other part of right foot with fat layer exposed | CPT/HCPCS: 36416; G0277 ==

== ENCOUNTER 2022-07-15 08:06 | Outpatient (CLI) | payer MEDICARE | END 2022-07-15 08:07 | disposition home or self-care (01) | LOC: CSHWCC 08:06 | PROVIDERS: ATTEND Nurse Practitioner Family | DX: E11.621 Type 2 diabetes mellitus with foot ulcer (principal); L97.512 Non-pressure chronic ulcer of other part of right foot with fat layer exposed | CPT/HCPCS: 82962; 97139; G0277; 36416 ==

== ENCOUNTER 2022-07-17 08:22 | Outpatient (CLI) | payer MEDICARE | END 2022-07-17 08:23 | disposition home or self-care (01) | LOC: CSHWCC 08:22 | PROVIDERS: ATTEND Nurse Practitioner Family | DX: E11.621 Type 2 diabetes mellitus with foot ulcer (principal); L97.512 Non-pressure chronic ulcer of other part of right foot with fat layer exposed | CPT/HCPCS: 36416 ==

== ENCOUNTER 2022-07-17 10:46 | Outpatient (CLI) | payer MEDICARE | END 2022-07-24 10:47 | disposition home or self-care (01) | LOC: CSHWCC 10:46 | PROVIDERS: ATTEND Nurse Practitioner Family | DX: E11.621 Type 2 diabetes mellitus with foot ulcer (principal); L97.512 Non-pressure chronic ulcer of other part of right foot with fat layer exposed | CPT/HCPCS: 82962 ×3; 97139; 97607; G0277; 36416 ==

== ENCOUNTER 2022-07-18 08:02 | Outpatient (CLI) | payer MEDICARE | END 2022-07-18 08:03 | disposition home or self-care (01) | LOC: CSHWCC 08:02 | PROVIDERS: ATTEND Nurse Practitioner Family | DX: E11.621 Type 2 diabetes mellitus with foot ulcer (principal); L97.512 Non-pressure chronic ulcer of other part of right foot with fat layer exposed | CPT/HCPCS: 36416; G0277 ==

== ENCOUNTER 2022-07-21 10:57 | Outpatient (CLI) | payer MEDICARE | END 2022-07-21 10:58 | disposition home or self-care (01) | LOC: CSHWCC 10:57 | PROVIDERS: ATTEND Nurse Practitioner Family | DX: M86.8X7 Other osteomyelitis, ankle and foot (principal) ==

== ENCOUNTER 2022-07-22 08:12 | Outpatient (CLI) | payer MEDICARE | END 2022-07-22 08:13 | disposition home or self-care (01) | LOC: CSHWCC 08:12 | PROVIDERS: ATTEND Nurse Practitioner Family | DX: E11.621 Type 2 diabetes mellitus with foot ulcer (principal); L97.512 Non-pressure chronic ulcer of other part of right foot with fat layer exposed | CPT/HCPCS: 36416 ==

== ENCOUNTER 2022-07-23 08:10 | Outpatient (CLI) | payer MEDICARE | END 2022-07-23 08:11 | disposition home or self-care (01) | LOC: CSHWCC 08:10 | PROVIDERS: ATTEND Nurse Practitioner Family | DX: E11.621 Type 2 diabetes mellitus with foot ulcer (principal); L97.512 Non-pressure chronic ulcer of other part of right foot with fat layer exposed | CPT/HCPCS: 36416 ==

== ENCOUNTER 2022-07-24 10:57 | Outpatient (CLI) | payer MEDICARE | END 2022-07-24 10:58 | disposition home or self-care (01) | LOC: CSHWCC 10:57 | PROVIDERS: ATTEND Nurse Practitioner Family | DX: E11.621 Type 2 diabetes mellitus with foot ulcer (principal); L97.512 Non-pressure chronic ulcer of other part of right foot with fat layer exposed; R60.0 Localized edema | CPT/HCPCS: 11042; 97139; G0277 ==

== ENCOUNTER 2022-07-31 11:17 | Outpatient (CLI) | payer MEDICARE | END 2022-07-31 11:18 | disposition home or self-care (01) | LOC: CSHWCC 11:17 | PROVIDERS: ATTEND Nurse Practitioner Family | DX: E11.621 Type 2 diabetes mellitus with foot ulcer (principal); L97.512 Non-pressure chronic ulcer of other part of right foot with fat layer exposed; R60.0 Localized edema ==

== ENCOUNTER 2022-08-04 09:50 | Outpatient (CLI) | payer MEDICARE | END 2022-08-04 09:51 | disposition home or self-care (01) | LOC: CSHWCC 09:50 | PROVIDERS: ATTEND Nurse Practitioner Family | DX: E11.621 Type 2 diabetes mellitus with foot ulcer (principal); L97.512 Non-pressure chronic ulcer of other part of right foot with fat layer exposed | CPT/HCPCS: 82962; 97139; G0277; 36416 ==

== ENCOUNTER 2022-08-05 08:07 | Outpatient (CLI) | payer MEDICARE | END 2022-08-05 08:08 | disposition home or self-care (01) | LOC: CSHWCC 08:07 | PROVIDERS: ATTEND Nurse Practitioner Family | DX: E11.621 Type 2 diabetes mellitus with foot ulcer (principal); L97.512 Non-pressure chronic ulcer of other part of right foot with fat layer exposed | CPT/HCPCS: 82962; 97139; G0277; 36416 ==

== ENCOUNTER 2022-08-06 08:08 | Outpatient (CLI) | payer MEDICARE | END 2022-08-06 08:09 | disposition home or self-care (01) | LOC: CSHWCC 08:08 | PROVIDERS: ATTEND Nurse Practitioner Family | DX: E11.621 Type 2 diabetes mellitus with foot ulcer (principal); L97.512 Non-pressure chronic ulcer of other part of right foot with fat layer exposed; R60.0 Localized edema | CPT/HCPCS: 82962; 97139; G0277; 36416 ==

== ENCOUNTER 2022-08-07 08:19 | Outpatient (CLI) | payer MEDICARE | END 2022-08-07 08:20 | disposition home or self-care (01) | LOC: CSHWCC 08:19 | PROVIDERS: ATTEND Nurse Practitioner Family | DX: E11.621 Type 2 diabetes mellitus with foot ulcer (principal); L97.512 Non-pressure chronic ulcer of other part of right foot with fat layer exposed ==

== ENCOUNTER 2022-08-08 08:12 | Outpatient (CLI) | payer MEDICARE | END 2022-08-08 08:13 | disposition home or self-care (01) | LOC: CSHWCC 08:12 | PROVIDERS: ATTEND Nurse Practitioner Family | DX: E11.621 Type 2 diabetes mellitus with foot ulcer (principal); L97.512 Non-pressure chronic ulcer of other part of right foot with fat layer exposed | CPT/HCPCS: 82962; 97139; G0277; 36416 ==

== ENCOUNTER 2022-08-11 08:09 | Outpatient (CLI) | payer MEDICARE | END 2022-08-11 08:10 | disposition home or self-care (01) | LOC: CSHWCC 08:09 | PROVIDERS: ATTEND Nurse Practitioner Family | DX: E11.621 Type 2 diabetes mellitus with foot ulcer (principal); L97.512 Non-pressure chronic ulcer of other part of right foot with fat layer exposed | CPT/HCPCS: 82962; 97139; G0277; 36416 ==

== ENCOUNTER 2022-08-12 08:08 | Outpatient (CLI) | payer MEDICARE | END 2022-08-12 08:09 | disposition home or self-care (01) | LOC: CSHWCC 08:08 | PROVIDERS: ATTEND Nurse Practitioner Family | DX: E11.621 Type 2 diabetes mellitus with foot ulcer (principal); L97.512 Non-pressure chronic ulcer of other part of right foot with fat layer exposed | CPT/HCPCS: 82962; 97139; G0277; 36416 ==

== ENCOUNTER 2022-08-13 08:09 | Outpatient (CLI) | payer MEDICARE | END 2022-08-13 08:10 | disposition home or self-care (01) | LOC: CSHWCC 08:09 | PROVIDERS: ATTEND Nurse Practitioner Family | DX: E11.621 Type 2 diabetes mellitus with foot ulcer (principal); L97.512 Non-pressure chronic ulcer of other part of right foot with fat layer exposed | CPT/HCPCS: 82962; 97139; G0277; 36416 ==

== ENCOUNTER 2022-08-15 08:12 | Outpatient (CLI) | payer MEDICARE | END 2022-08-15 08:13 | disposition home or self-care (01) | LOC: CSHWCC 08:12 | PROVIDERS: ATTEND Nurse Practitioner Family | DX: E11.621 Type 2 diabetes mellitus with foot ulcer (principal); L97.512 Non-pressure chronic ulcer of other part of right foot with fat layer exposed | CPT/HCPCS: 36416; 99213; G0277; G0463 ==

== ENCOUNTER 2022-08-18 08:12 | Outpatient (CLI) | payer MEDICARE | END 2022-08-18 08:13 | disposition home or self-care (01) | LOC: CSHWCC 08:12 | PROVIDERS: ATTEND Nurse Practitioner Family | DX: E11.621 Type 2 diabetes mellitus with foot ulcer (principal); L97.512 Non-pressure chronic ulcer of other part of right foot with fat layer exposed | CPT/HCPCS: 82962; 97139; G0277; 36416 ==

== ENCOUNTER 2022-08-19 08:08 | Outpatient (CLI) | payer MEDICARE | END 2022-08-19 08:09 | disposition home or self-care (01) | LOC: CSHWCC 08:08 | PROVIDERS: ATTEND Nurse Practitioner Family | DX: E11.621 Type 2 diabetes mellitus with foot ulcer (principal); L97.512 Non-pressure chronic ulcer of other part of right foot with fat layer exposed | CPT/HCPCS: 36416; G0277 ==

== ENCOUNTER 2022-08-20 08:00 | Outpatient (CLI) | payer MEDICARE | END 2022-08-20 08:01 | disposition home or self-care (01) | LOC: CSHWCC 08:00 | PROVIDERS: ATTEND Nurse Practitioner Family | DX: E11.621 Type 2 diabetes mellitus with foot ulcer (principal); L97.512 Non-pressure chronic ulcer of other part of right foot with fat layer exposed | CPT/HCPCS: 82962; 97139; G0277; 36416 ==

== ENCOUNTER 2022-08-21 08:10 | Outpatient (CLI) | payer MEDICARE | END 2022-08-21 08:11 | disposition home or self-care (01) | LOC: CSHWCC 08:10 | PROVIDERS: ATTEND Nurse Practitioner Family | DX: E11.621 Type 2 diabetes mellitus with foot ulcer (principal); L97.512 Non-pressure chronic ulcer of other part of right foot with fat layer exposed | CPT/HCPCS: 82962; 97139; G0277; 36416 ==

== ENCOUNTER 2022-08-22 08:04 | Outpatient (CLI) | payer MEDICARE | END 2022-08-22 08:05 | disposition home or self-care (01) | LOC: CSHWCC 08:04 | PROVIDERS: ATTEND Nurse Practitioner Family | DX: E11.621 Type 2 diabetes mellitus with foot ulcer (principal); L97.512 Non-pressure chronic ulcer of other part of right foot with fat layer exposed | CPT/HCPCS: 36416 ==

== ENCOUNTER 2022-08-25 09:55 | Outpatient (CLI) | payer MEDICARE | END 2022-08-25 09:56 | disposition home or self-care (01) | LOC: CSHWCC 09:55 | PROVIDERS: ATTEND Nurse Practitioner Family | DX: E11.621 Type 2 diabetes mellitus with foot ulcer (principal); L97.512 Non-pressure chronic ulcer of other part of right foot with fat layer exposed | CPT/HCPCS: 36416; G0277 ==

== ENCOUNTER 2022-08-27 08:17 | Outpatient (CLI) | payer MEDICARE | END 2022-08-27 08:18 | disposition home or self-care (01) | LOC: CSHWCC 08:17 | PROVIDERS: ATTEND Nurse Practitioner Family | DX: E11.621 Type 2 diabetes mellitus with foot ulcer (principal); L97.512 Non-pressure chronic ulcer of other part of right foot with fat layer exposed | CPT/HCPCS: 82962; 97139; G0277; 36416 ==

== ENCOUNTER 2022-08-28 08:22 | Outpatient (CLI) | payer MEDICARE | END 2022-08-28 08:23 | disposition home or self-care (01) | LOC: CSHWCC 08:22 | PROVIDERS: ATTEND Nurse Practitioner Family | DX: E11.621 Type 2 diabetes mellitus with foot ulcer (principal); L97.512 Non-pressure chronic ulcer of other part of right foot with fat layer exposed | CPT/HCPCS: 82962; 97139; G0277; 36416 ==

== ENCOUNTER 2022-08-29 12:54 | Outpatient (CLI) | payer MEDICARE | END 2022-08-29 12:55 | disposition home or self-care (01) | LOC: CSHWCC 12:54 | PROVIDERS: ATTEND Nurse Practitioner Family | DX: E11.621 Type 2 diabetes mellitus with foot ulcer (principal); L97.512 Non-pressure chronic ulcer of other part of right foot with fat layer exposed | CPT/HCPCS: 82962; 97139; G0277; 36416; 99213; G0463 ==

== ENCOUNTER 2022-09-12 14:09 | Outpatient (CLI) | payer MEDICARE | END 2022-09-12 14:10 | disposition home or self-care (01) | LOC: CSHWCC 14:09 | PROVIDERS: ATTEND Nurse Practitioner Family | DX: E11.621 Type 2 diabetes mellitus with foot ulcer (principal); L97.512 Non-pressure chronic ulcer of other part of right foot with fat layer exposed; Z89.411 Acquired absence of right great toe; R60.0 Localized edema | CPT/HCPCS: 97139; G0463; 99213 ==

== ENCOUNTER 2022-10-03 09:28 | Outpatient (CLI) | payer MEDICARE, SELFPAY | END 2022-10-03 09:29 | disposition home or self-care (01) | LOC: CSHWCC 09:28 | PROVIDERS: ATTEND Nurse Practitioner Family | DX: E11.628 Type 2 diabetes mellitus with other skin complications (principal); R60.0 Localized edema | CPT/HCPCS: 99213; G0463 ==

== ENCOUNTER 2023-11-17 12:50 | Outpatient (CLI) | payer MEDICARE | END 2023-11-17 12:51 | disposition home or self-care (01) | LOC: CSHWCC 12:50 | PROVIDERS: ATTEND Nurse Practitioner Family | DX: E11.621 Type 2 diabetes mellitus with foot ulcer (principal); L97.522 Non-pressure chronic ulcer of other part of left foot with fat layer exposed; I73.9 Peripheral vascular disease, unspecified | CPT/HCPCS: 99212; G0463 ==

== ENCOUNTER 2023-12-01 13:35 | Outpatient (CLI) | payer MEDICARE, OTHER | END 2023-12-01 13:36 | disposition home or self-care (01) | LOC: CSHWCC 13:35 | PROVIDERS: ATTEND Nurse Practitioner Family | DX: E11.51 Type 2 diabetes mellitus with diabetic peripheral angiopathy without gangrene (principal); Z86.31 Personal history of diabetic foot ulcer | CPT/HCPCS: 99212; G0463 ==

== ENCOUNTER 2023-12-08 13:38 | Outpatient (CLI) | payer MEDICARE | END 2023-12-08 13:39 | disposition home or self-care (01) | LOC: CSHWCC 13:38 | PROVIDERS: ATTEND Preventive Medicine Undersea and Hyperbaric Medicine | DX: E11.59 Type 2 diabetes mellitus with other circulatory complications (principal); Z86.31 Personal history of diabetic foot ulcer | CPT/HCPCS: 99213; G0463 ==

== ENCOUNTER 2024-03-04 08:57 | Outpatient (CLI) | payer MEDICARE | END 2024-03-04 08:58 | disposition home or self-care (01) | LOC: CSHWCC 08:57 | PROVIDERS: ATTEND Nurse Practitioner Family | DX: E11.621 Type 2 diabetes mellitus with foot ulcer (principal); L97.522 Non-pressure chronic ulcer of other part of left foot with fat layer exposed; J44.9 Chronic obstructive pulmonary disease, unspecified | CPT/HCPCS: 11042 ==

== ENCOUNTER 2024-03-11 11:26 | Outpatient (CLI) | payer MEDICARE, OTHER | END 2024-03-11 11:27 | disposition home or self-care (01) | LOC: CSHWCC 11:26 | PROVIDERS: ATTEND Nurse Practitioner Family | DX: E11.621 Type 2 diabetes mellitus with foot ulcer (principal); L97.522 Non-pressure chronic ulcer of other part of left foot with fat layer exposed; J44.9 Chronic obstructive pulmonary disease, unspecified | CPT/HCPCS: 97597 ==

== ENCOUNTER 2024-03-18 13:04 | Outpatient (CLI) | payer MEDICARE, OTHER | END 2024-03-18 13:05 | disposition home or self-care (01) | LOC: CSHWCC 13:04 | PROVIDERS: ATTEND Nurse Practitioner Family | DX: E11.621 Type 2 diabetes mellitus with foot ulcer (principal); L97.522 Non-pressure chronic ulcer of other part of left foot with fat layer exposed; J44.9 Chronic obstructive pulmonary disease, unspecified | CPT/HCPCS: 99212; G0463 ==

== ENCOUNTER 2024-04-12 05:46 | Day surgery (SDC) | payer MEDICARE ==
[2024-04-12 07:10] LABS: #Basophils 0.05 10x3/uL (0.0-0.2); #Eosinophils 0.14 10x3/uL (0.0-0.5); #Monocytes 0.65 10x3/uL (0.0-1.1); %Basophils 0.8 % (0.0-2.0); %Eosinophils 2.3 % (0.0-6.0); %Lymphocytes 20.4 % (18.0-47.0); %Monocytes 10.6 % (0.0-10.0); %Neutrophils 65.4 % (40.0-75.0); Hematocrit 42.3 % (38.8-50.0); Hemoglobin 13.7 g/dL (13.5-17.5); Mean Corpuscular HGB CONC 32.4 g/dL (32.0-36.0); Mean Corpuscular Hemoglobin 28.2 pg (27.0-33.0); Mean Platelet Volume 8.7 fL (7.4-10.4); Platelet Count 211 10x3/uL (150-450); RBC Distribution Width 14.4 % (11.5-14.5); Red Blood Cell (RBC) Count 4.86 10x6/uL (4.32-5.72); White Blood Cell (WBC) Count 6.1 10x3/uL (3.5-10.5)
[2024-04-12 07:18] LABS: INR-International Normal Ratio 0.9; PTT 29.6 sec (22.0-33.0); Prothrombin Time 9.9 sec (9.5-12.1)
[2024-04-12 07:21] LABS: ALT (SGPT) 57 U/L (8-55); AST (SGOT) 29 U/L (5-34); Albumin 3.7 g/dL (3.4-4.8); Alkaline Phosphatase 90 U/L (40-110); Anion Gap 15 mmol/L (10-20); BUN (Urea Nitrogen) 25 mg/dL (8.4-25.7); Bilirubin, Total 0.8 mg/dL (0.2-1.2); Calc. Creatinine Clearance 0 mL/min (70-130); Calcium 8.3 mg/dL (7.8-10.44); Carbon Dioxide 16 mmol/L (23-31); Chloride 110 mmol/L (98-107); Estimated GFR 59; Globulin 3.2 g/dL (2.4-3.5); Glucose 248 mg/dL (80-115); Potassium 4.3 mmol/L (3.5-5.1); Protein, Total 6.9 g/dL (5.8-8.1); Sodium 137 mmol/L (136-145)
[2024-04-12] MEDS ORDERED: fentaNYL 50 mcg/mL 1 mL Vial ONE (07:31)
[2024-04-12] MEDS ORDERED: Midazolam HCl 2 mg/2 ml Vial ONE (07:31)
[2024-04-12] MEDS ORDERED: Heparin 10,000 UNITS/ 10 ML VIAL ONE (07:31)
[2024-04-12] MEDS ORDERED: Nitroglycerin 50 MG/250 ML BOT 0 ML ONE (07:31)
[2024-04-12] MEDS ORDERED: Acetylcysteine 800 MG/4 ML VIAL ONE (07:32)
[2024-04-12] MEDS ORDERED: Iopamidol 370 76% 100 ML VIAL ONE (09:21)
[2024-04-12] MEDS ORDERED: Iopamidol 300 61% 100 ML VIAL FS ONE (09:21)
[2024-04-12 09:30] VITALS: BP 125/60; TEMP 97.8
[2024-04-12] MEDS ORDERED: FLU (Fluarix Triv) TS24-25(6MOS UP)/PF 45 MCG/0.5 ML Syringe IM ONE (09:45)
[2024-04-12] MEDS ORDERED: Ondansetron PF 4 MG/2 ML Vial ONE (15:21)
== END 2024-04-12 17:45 | disposition home or self-care (01) ==
LOC: CSHSDC 05:46
PROVIDERS: ATTEND Specialist
PROC: 047Q3ZZ Dilation of Left Anterior Tibial Artery, Percutaneous Approach (ICD-10-PCS; principal; 2024-04-12)
PROC: 047P3ZZ Dilation of Right Anterior Tibial Artery, Percutaneous Approach (ICD-10-PCS; 2024-04-12)
DX: I70.212 Atherosclerosis of native arteries of extremities with intermittent claudication, left leg (principal); I10 Essential (primary) hypertension; E78.5 Hyperlipidemia, unspecified; I48.0 Paroxysmal atrial fibrillation; E11.9 Type 2 diabetes mellitus without complications; E03.9 Hypothyroidism, unspecified; E66.9 Obesity, unspecified; G47.00 Insomnia, unspecified; I25.10 Atherosclerotic heart disease of native coronary artery without angina pectoris; Z90.49 Acquired absence of other specified parts of digestive tract; Z98.890 Other specified postprocedural states; Z87.891 Personal history of nicotine dependence; Z88.0 Allergy status to penicillin; Z88.8 Allergy status to other drugs, medicaments and biological substances; Z88.1 Allergy status to other antibiotic agents; Z79.890 Hormone replacement therapy; Z79.899 Other long term (current) drug therapy; Z79.84 Long term (current) use of oral hypoglycemic drugs; Z79.01 Long term (current) use of anticoagulants
CPT/HCPCS: 37230; 75625; 75716; 75774; 80053; 85025; 85347 ×2; 85610; 85730; C1769 ×2; C1874; C1887; C1894 ×2; J1644; J2250; J2405; J3010; Q9967 ×2; 99152; 99153

== ENCOUNTER 2025-02-08 07:07 | Day surgery (SDC) | payer SELFPAY ==
[2025-02-08 07:59] VITALS: TEMP 97.7
== END 2025-02-08 08:05 | disposition home or self-care (01) ==
LOC: CSHSDC 07:07
PROVIDERS: ATTEND Specialist
DX: I48.91 Unspecified atrial fibrillation (principal); Z53.9 Procedure and treatment not carried out, unspecified reason
CPT/HCPCS: 93005